=== PATIENT | male | born 2005 | race Two or more races ===

== ENCOUNTER 2024-12-30 09:20 | Emergency (ER) | payer MEDICAID, SELFPAY ==
[2024-12-30 09:21] VITALS: BMI 37.6
[2024-12-30 09:26] VITALS: BP 153/80; PULSE 99; RESP 19; TEMP 36.8; O2SAT 95
--- NOTE | 2024-12-30 09:33 | XR_ITS ---
Examination: PA lateral chest 2 views Technique: Upright PA lateral chest 2 views Date and time: December 30, 2024 1053 hrs. Indications: Coughing shortness of breath today Findings: Reduced inspiratory effort Normal heart size Prominence of the central pulmonary arteries, mild No lobar pneumonia Impression: No pneumonia identified
--- NOTE | 2024-12-30 10:43 | EDNOTE_ITS ---
Upper Respiratory Inf. RME/HPI General Chief Complaint: Flu Like Symptoms Stated Complaint: BODYACHES, CHILLS, SOB Time Seen by Provider: 12/30/24 09:21 Arrival date/time: 12/30/24 09:20 19-year-old male presents to the emergency department today for complaints of bodyaches chills cough ongoing x 2 days Limitations: no limitations Related Data Previous Rx's ?Medication ?Instructions ?Recorded erythromycin 5 mg/gram (0.5 %) eye 1 appl Right eye QI D #1 ea 06/17/17 ointment albuterol sulfate 90 mcg/actuation 2 puff inhalation Q 6H PRN 12/30/24 aerosol inhaler (Ventolin HFA) shortness of breath or wheezing #8.5 grams benzonatate 100 mg capsule 100 mg PO TID #14 caps 12/08 12/01 ibuprofen 800 mg tablet 800 mg PO TID PRN pain #30 t abs 12/30/24 prednisone 10 mg tablet 30 mg (3 x 10 mg) PO BID 3 d ays 12/30/24 #18 tabs Allergies Allergy/AdvReac Type Severity Reaction Status Date / Time NKA Allergy Unknown Uncoded 12/30/24 09:23 Review of Systems Review of Systems Systems Reviewed: All systems reviewed, normal except as documented Constitutional Constitutional: Reports system reviewed and no additional complaints, except as documented, Reports body ache(s), Reports chills, Reports fever(s) and Reports headache(s) Eyes Eyes: Reports system reviewed and no additional complaints, except as documented and Denies blurry vision ENT Ears, Nose, Mouth, and Throat: Reports system reviewed and no additional complaints, except as documented, Reports headache(s), Reports nasal congestion and Reports nasal discharge Cardiovascular Cardiovascular: Reports system reviewed and no additional complaints, except as documented, Denies chest pain and Denies dyspnea Respiratory Respiratory: Reports system reviewed and no additional complaints, except as documented, Denies chest congestion, Denies cough and Denies dyspnea Gastrointestinal Gastrointestinal: Reports system reviewed and no additional complaints, except as documented and Denies abdominal pain Integumentary/Breasts Skin/Breast: Reports system reviewed and no additional complaints, except as documented and Denies rash Neurologic Neurologic: Reports system reviewed and no additional complaints, except as documented, Reports as per HPI and Reports headache(s) Past Medical History Social History SMOKING STATUS: Never smoker ED Exam General Limitations: Present no limitations General appearance: Present alert and in no apparent distress Head Head exam: Present atraumatic and normal inspection Eye Eye exam: Present normal appearance, PERRL and EOMI; Absent conjunctival injection ENT ENT exam: Present normal exam, normal oropharynx and mucous membranes moist Neck Neck exam: Present normal inspection, full ROM and trachea midline Chest Chest inspection: Present normal inspection and symmetric chest wall rise Respiratory Respiratory exam: Present normal lung sounds bilaterally; Absent respiratory distress Cardiovascular Cardiovascular exam: Present regular rate, normal rhythm and normal heart sounds Abdominal Exam Abdominal exam: Present soft and normal bowel sounds; Absent distention, tenderness, guarding, rebound or rigidity Extremities Exam Extremities exam: Present normal inspection and full ROM Back Exam Back exam: Present normal inspection and full ROM Neurological Exam Neurological exam: Present alert, oriented X3 and CN II-XII intact Psychiatric Psychiatric exam: Present normal affect and normal mood Skin Skin exam: Present warm, dry, intact and normal color Course Quality Measures none Orders Category Date Time Status Bedside Influenza A&B Antigen Test NOW Care 12/30/24 09:22 Completed XR chest 2V Stat Exams 12/30/24 09:33 Completed Vital Signs Vital signs: Vital Signs Temperature 98.2 F 12/30/24 09:26 Pulse Rate 99 12/30/24 09:26 Respiratory Rate 19 12/30/24 09:26 Blood Pressure 153/80 H 12/30/24 09:26 Pulse Oximetry (%) 95 12/30/24 09:26 Oxygen Delivery Method Room Air 12/30/24 09:26 O2 saturation 95% room air within normal limits Upper Respiratory Infection MDM Narrative MDM Narrative:: 19-year-old male presents to the emergency department today for complaints of bodyaches chills cough ongoing x 2 days On exam patient well-appearing patient does not appear toxic in no acute distress, patient has no tachypnea or dyspnea no creased work of breathing Patient checked for flu and it came back positive Chest x-ray obtained no acute pneumonic infiltrates noted Symptoms highly consistent with influenza Patient discharged home in no distress to follow-up with primary care doctor in the next 24 to 48 hours and for any worsening symptoms to return to the ER immediately Patient data External records reviewed:: [facility] previous records Clinical information provided by:: patient Social determinants that could affect healthcare access:: none Patient has the following chronic illnesses:: None How is presenting disease/condition affected by chronic disease/condition?: no chronic disease Evaluation data The following diagnostics were reviewed and interpreted by me:: lab results and radiology exam(s) Lab and/or radiology exams considered but not ordered:: Labs radiology obtained Interpretation Summary: Reviewed by me Medications / Prescriptions Medications or Prescriptions considered but not ordered:: Given Medication administrations:: Given Consultations Consultation(s) initiated? (list below): No Diagnosis Upper Respiratory Differential Diagnosis: upper respiratory infection, otitis media, sinusitis, viral infection and bronchitis Most likely diagnosis given after review of the tests above:: Influenza Admission Indicated Admission indicated?: not indicated Admission Request Was there a request for admission?: No Disposition Plan Disposition Plan: Discharge Discharge Attestation Discharge Attestation: The patient and all family members were given an opportunity to ask questions and understood the discharge instructions. Discharge instructions specifically effects, indications for sooner follow up or return to the emergency department, and the expected course of current diagnosis. Patient condition: Stable Discharge Plan Plan Patient Disposition: HOME (Self Care) Discharge Disposition comment: Stable Prescriptions/Referrals Prescriptions/Med Rec: New prednisone 10 mg tablet 30 mg PO BID 3 Days Qty: 18 0RF ibuprofen 800 mg tablet 800 mg PO TID PRN (Reason: pain) Qty: 30 0RF albuterol sulfate [Ventolin HFA] 90 mcg/actuation HFA aerosol inhaler 2 puff inhalation Q6H PRN (Reason: shortness of breath or wheezing) Qty: 8.5 0RF benzonatate 100 mg capsule 100 mg PO TID Qty: 14 0RF No Action erythromycin 1 GM ointment 1 appl Right eye QID Qty: 1 0RF Referrals: Steve Coker MD [Primary Care Provider] - In 1 week Problem List Clinical Impression: Influenza Patient/Caregiver Discharge Instructions Education Materials: The Flu (Influenza) Additional Instructions: Please follow up with your primary care doctor in the next 24-48hrs for any worsening symptoms return here immediately Print Language: Chadian Stand Alone Forms: Tari Award Info., Work/School Release, Patient Portal Info Letter PA/PASTORAL WORKER Supervising Physician PA/PASTORAL WORKER Supervising Physician: Dr. starr
== END 2024-12-30 10:52 | disposition home or self-care (01) ==
PROVIDERS: Emergency Provider Family Medicine; PCP Family Medicine
DX: J11.1 Influenza due to unidentified influenza virus with other respiratory manifestations (principal)
CPT/HCPCS: 71046; 87400; 99283